=== PATIENT | female | born 1970 | race Caucasian/White ===

== ENCOUNTER 2019-10-16 10:46 | Outpatient (CLI) | payer BC ==
--- NOTE | 2019-10-17 11:10 | CT Report ---
Reason: PAROTIDITIS Procedure Date: 10/16/2019 Accession Number: [id number] / [id number] Procedure: CT - MAXILLOFACIAL WO CPT Code: Final Report FULL RESULT: EXAM: CT MAXILLOFACIAL WITHOUT CONTRAST EXAM DATE: 10/16/2019 11:08 AM. CLINICAL HISTORY: Right parotid fullness and pain. COMPARISONS: None. TECHNIQUE: Thin-section axial images were acquired of the face without contrast. Post-processing: Coronal and sagittal reformats. Other: None. In accordance with CT protocol optimization, one or more of the following dose reduction techniques were utilized for this exam: automated exposure control, adjustment of mA and/or KV based on patient size, or use of iterative reconstructive technique. FINDINGS: Soft Tissue: The infratemporal fossa and parapharyngeal spaces are unremarkable. Orbits: Symmetric and unremarkable. Bones: No fracture or bone lesion. Temporomandibular Joints: The temporomandibular joints are symmetric and normally located. Sinuses: Trace (2 mm) mucosal thickening along the medial wall of the left maxillary sinus. The other visualized paranasal sinuses are clear. No fluid levels. The ostiomeatal complexes are patent. Other: The parotid glands are symmetric. No evidence for inflammation. No mass lesions. No regional adenopathy. IMPRESSION: Symmetric parotid glands. No evidence for inflammation. No mass lesions. RADIA
== END 2019-10-16 10:47 | disposition home or self-care (01) ==
LOC: DI 10:46
PROVIDERS: ATTEND Physician Assistant
DX: K11.20 Sialoadenitis, unspecified (principal)
CPT/HCPCS: 70486

== ENCOUNTER 2020-01-22 10:39 | Outpatient (CLI) | payer BC ==
--- NOTE | 2020-01-22 17:13 | SLEEP CARE CONSULTATION ---
Information from patient questionnaire entered by Radha Chery. I have reviewed and concur with the information entered by Radha Chery. This document represents the service I personally performed and the decisions made by me, Sarabjit Cuevas MD, [facility]. History of Present Illness Reason for Visit: New patient Chief Complaint: reports: Unrefreshed sleep, Snoring, Excessive daytime sleepiness, Observed pauses in breathing, Fatigue Duration of Symptoms: 15-20 years Usual bedtime: 10:30pm Time it takes to fall asleep: 10 minutes Snores at night: Yes Observed to quit breathing while asleep: Yes Sleeps alone due to snoring: No Number of times waking at night: 2-3 Reasons for waking at night: reports: Choking, Snoring, Pain, Other (noise) Toss, Turn, or Twitch while sleeping: Yes Recalls having dreams: Yes Usually gets out of bed at: 7:30am Feels refreshed in the morning: No Morning headache: No Sleepy or fatigued during the day: Yes Ever fallen asleep while driving: No Takes day naps: Yes Dreams during day naps: No Prior sleep studies: No Additional HPI information: I had the pleasure of seeing Ms. Nuñez today regarding the possibility of her having a sleep disorder. As you know, she is a 49 year old lady who complains of persistent fatigue and loud snore. She did not use to snore when she was at 155 lbs. The patient tells me that she normally goes to bed around 10:30 pm, and it takes her approximately 10 minutes to fall asleep. She has been told that she snores loudly and irregularly at night. She has also been observed to stop breathing in her sleep. Her spouse can sleep in the same bed. She can recall waking up on the average of 2 - 3 times during the night. Most of the time she wakes up because of pain. She has awakened occasionally because of her own snoring, choking, and having to gasp for air. There is a lot of tossing and turning in her sleep. No somniloquy (sleep talking) or somnambulism (sleep walking). Generally she can recall having dreams. In the morning she usually gets up out of the bed around 7:30 a.m. not feeling refreshed nor rested. She usually does not have a morning headache. During the day she complains of feeling sleepy and fatigued. Her score on [place] Sleepiness Scale is 7 out of 24. She has never fallen asleep while driving nor has had any accident due to sleepiness. She usually takes naps during the day. Upon falling asleep during the day she denies having vivid dreams. She has had sleep paralysis. She reports having impaired concentration during the day. No symptoms of restless leg syndrome. 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 Patient is and lives in [place]. Have you smoked in the past 12 months: No Alcohol use: No Caffeine use: Yes Caffeine amount and frequency: 1 cup of coffee a day Family History Family history of sleep disordered breathing: Yes Allergies and Home Medications Drug allergies reviewed: Yes (NKDA) Home medication list reviewed: Yes (none) Review of Systems Weight gain over past 5 years: 7-8 Cardiovascular: reports: palpitations, chest pain Respiratory: reports: shortness of breath, sputum production, chronic cough Gastrointestinal: denies: heartburn, difficulty swallowing, nausea, vomitting, diarrhea, abdominal pain, other Urinary: denies: incontinence, frequency, urgency, impotence, other Neurological: denies: headaches, seizure, head trauma, disorientation, speech dysfunction, gait or balance problems, fainting or unconsciousness, other Psychiatric: reports: depression Ear/Nose/Throat: reports: nasal congestion, sinus problems, wisdom teeth removed Endocrine: reports: sluggishness, increased appetite, unexplained weakness Musculoskeletal: reports: joint pain Immunologic: denies: sneezing, rash, itching, allergies to food or environment, other Physical Exam Height: 5 ft 5 in Weight: 180 lb Body Mass Index: 29.9 BMI Classification: Overweight Impression and Plan IMPRESSION: 1. Obstructive Sleep Apnea-Hypopnea Syndrome, as suggested by history of loud and irregular snoring, observed cessation of breath while asleep, frequent awakenings during the night, unrefreshed sleep, cognitive impairment, and daytime hypersomnolence. Narrow oropharynx and obesity are common predisposing factors for obstructive sleep apnea-hypopnea syndrome. Pathophysiology of sleep-disordered breathing was discussed. I recommend proceeding to polysomnography to confirm the diagnosis and to assess severity. If she has significant sleep disordered breathing, a manual CPAP titration study will also be performed to find the optimal treatment pressure. I informed the patient of what the sleep studies involve and after some discussion, she agreed to proceed. Plan: 1. Schedule an in-laboratory polysomnography or a home sleep apnea test (HSAT). 2. Avoid long distance driving or when feeling sleepy. 3. Avoid alcohol, sedative and muscle relaxant around bedtime. 4. Attempt to lose weight. 5. Return in 1 to 2 weeks after the study to discuss results and initiate therapy. I spent 100% of this visit face to face with the patient with greater than 50% of this was spent time counseling the patient and coordination of care.
== END 2020-01-22 10:40 | disposition home or self-care (01) ==
LOC: SC 10:39
PROVIDERS: ATTEND Internal Medicine Pulmonary Disease
DX: G47.10 Hypersomnia, unspecified (principal); G47.8 Other sleep disorders; R06.83 Snoring; R41.89 Other symptoms and signs involving cognitive functions and awareness; E66.3 Overweight; Z68.29 Body mass index [BMI] 29.0-29.9, adult
CPT/HCPCS: 99203; 99212

== ENCOUNTER 2020-04-17 13:10 | Outpatient (CLI) | payer BC | END 2020-04-17 13:11 | disposition home or self-care (01) | LOC: LAB 13:10 | PROVIDERS: ATTEND Surgery | DX: Z01.818 Encounter for other preprocedural examination (principal); C50.912 Malignant neoplasm of unspecified site of left female breast; Z20.828 Contact with and (suspected) exposure to other viral communicable diseases | CPT/HCPCS: 81599 ==

== ENCOUNTER 2020-04-21 10:02 | Day surgery (SDC) | payer BC ==
[~2020-04-21 10:02] MED LIST: BUFFERED LIDOCAINE 10 ML SYRINGE ONE
[2020-04-21] MEDS ORDERED: fentaNYL 100 MCG/2 ML VIAL IVP ONE (10:03)
[2020-04-21] MEDS ORDERED: DEXAMETHASONE 4 MG/ML VIAL IVP ONE (10:03)
[2020-04-21] MEDS ORDERED: ONDANSETRON 4 MG/2 ML VIAL IVP ONE (10:03)
[2020-04-21] MEDS ORDERED: MIDAZOLAM 2 MG/2 ML VIAL IVP ONE (10:03)
[2020-04-21] MEDS ORDERED: KETAMINE 500 MG/10 ML VIAL IVP ONE (10:03)
[2020-04-21] MEDS ORDERED: PROPOFOL 200 MG/20 ML VIAL IVP ONE (10:03)
[2020-04-21] MEDS ORDERED: LACTATED RINGERS 1,000 ML IV ONE (10:14)
[2020-04-21] MEDS ORDERED: CEFAZOLIN SODIUM IN 0.9 % NACL 2 GM/100 ML BAG IV ONE (10:29)
--- NOTE | 2020-04-21 10:59 | ANESTHESIA ---
Pre-Anesthesia VS, & Labs - Diagnosis Breast CA - Procedure Left breast lumpectomy needle localization Vital Signs: Temp Pulse Resp BP Pulse Ox 36.8 C 75 12 128/78 100 04/21/20 10:14 04/21/20 10:14 04/21/20 10:14 04/21/20 10:14 04/21/20 10:14 Height 5 ft 5 in Weight (kg) 81.5 kg Body Mass Index 29.1 - Is Patient ?: No - Lab Results Lab results reviewed: Yes Home Medications and Allergies Home Medications: Ambulatory Orders Aspirin [Aspirin EC] 81 mg PO DAILY 04/16/20 Tamoxifen Citrate 20 mg PO DAILY 04/16/20 Aspirin [Aspirin EC] 81 mg PO DAILY 04/16/20 Tamoxifen Citrate 20 mg PO DAILY 04/16/20 Allergies/Adverse Reactions: Allergies Allergy/AdvReac Type Severity Reaction Status Date / Time No Known Drug Allergies Allergy Verified 04/16/20 10:23 Anes History & Medical History - Anesthetic History Anesthesia Complications: reports: No previous complications Family history of Anesthesia Complications: Denies Family history of Malignant Hyperthermia: Denies - Medical History Cardiovascular: reports: None, Other Pulmonary: reports: None, Sleep apnea Gastrointestinal: reports: None Urinary: reports: None Neuro: reports: None Musculoskeletal: reports: Fibromyalgia Endocrine/Autoimmune: reports: None Blood Disorders: reports: None Skin: reports: None Smoking Status: Never smoker Psychosocial: reports: No issues indicated - Surgical History General: Appendectomy Gynecologic: Hysterectomy, Oophrectomy Results - EKG Results EKG Comparison: No prior EKG Exam General: Alert, Oriented x3, Cooperative Dental: WNL Mouth Openin Fingerbreadth Neck Mobility: Normal Mallampati classification: II Thyromental Distance: 4-6 cm Respiratory: Lungs clear Cardiovascular: Regular rate Abdomen: Normal bowel sounds Extremities: No clubbing Neurological: Normal gait Mental/Cognitive Status: Alert/Oriented X3 Cognitive Status: Within normal limits Plan Anesthesia Type: General Consent for Procedure(s) Verified and Reviewed: Yes Code Status: Attempt Resuscitation ASA classification: 2-Mild systemic disease Is this case an emergency?: No
[2020-04-21] MEDS ORDERED: BUFFERED LIDOCAINE 10 ML SYRINGE ONE (12:29)
[2020-04-21] MEDS ORDERED: LIDOCAINE 1%-EPI 1:100000 30 ML MDV SUBQ ONE ×4 (13:44→15:19)
[2020-04-21] MEDS ORDERED: BUPIVACAINE 0.5%-EPI 1:200000 PF 30 ML VIAL SUBQ ONE ×4 (13:44→15:19)
[2020-04-21] MEDS ORDERED: LIDOCAINE 1%-EPI 1:100000 20 ML MDV ONE (14:11)
[2020-04-21] MEDS ORDERED: METHYLENE BLUE 0.5% 50 MG/10 ML AMPULE ONE (14:11)
[2020-04-21] MEDS ORDERED: BUPIVACAINE 0.5% PF 30 ML VIAL ONE (14:12)
[2020-04-21] MEDS ORDERED: SODIUM CHLORIDE 0.9% 10 ML ONE (14:16)
[2020-04-21] MEDS ORDERED: METHYLENE BLUE 0.5% 50 MG/10 ML AMPULE IVP ONE ×2 (14:36)
[2020-04-21] MEDS ORDERED: ACETAMINOPHEN 1,000 MG/100 ML 100 ML IV ONE (14:38)
--- NOTE | 2020-04-21 15:51 | OPERATIVE REPORT ---
Operative Report - General Planned Procedure: Left breast lumpectomy and sentinel node biopsy after needle localization and mapping Pre-Op Diagnosis: Biopsy proven left breast cancer Procedure Performed: Left breast lumpectomy and sentinel node biopsy after needle localization and mapping Post Op Diagnosis: Left breast cancer - Procedure Note Primary Surgeon: Keshia Anesthesia Provider: Deb Anesthesia Technique: Local, MAC Pathology: 1. a single blue and radioactive lymph node to pathology in formalin 2. Left breast mass marked for orientation Estimated Blood Loss (mL): 25 Findings: 1. a single left sentinel with 10 second count of 1890, 1 sec count of 185 in a background of 8. Room background was 0 2. Mass and clip centered in the specimen Complications: None apparent - Other Other Information/Narrative: After obtaining informed consent, the patient is brought to the operating room and placed in the supine position on the operating table. Following successful induction of sedation, the left breast and axilla were prepped and draped in the standard surgical fashion. A timeout was held per scope protocol. All elements of the surgical safety checklist were followed before, during, and after the procedure. The patient was seen previously in our radiology department where she underwent a needle localization as well as injection of 1 mCi of technetium sulfur colloid followed by sentinel node mapping. TheTo the axilla at all. Images were reviewed and did not show any significant evidence of sentinel node. radioactive tracer did not appear to migrate we elected to attempt a second mapping using methylene blue in the operating room.We began the procedure by double checking using the neoprobe. The entire chest wall cervical supraclavicular axillary and internal mammary regions were scanned with the neoprobe without significant counts. This is with the exception of a very high count at the nipple areolar complex where the patient was injected.I injected 3 mL of methylene blue in the subcutaneous region of the nipple areolar complex and the massaged the area for 5 minutes. We began the procedure by infiltrating a mixture of local anesthetics in a natural axillary fold in the left axilla. An incision was created here and carried down through the skin and subcutaneous tissue.The axillary fat pad was opened. We again used the neoprobe to try to identify an area of increased uptake. A single hot node was identified at level 2. This same node was noted to be dark blue in color. All afferent and efferent vasculature and lymphatics were addressed with hemoclips. The node was liberated from surrounding structures and passed from the table as sentinel node 1.Additional survey of the axilla did not reveal any additional blue lymphatics or lymph nodes. We co ntinued with the lumpectomy. Due to the proximity of the breast mass to the axilla, I was able to utilize the same incision to perform the lumpectomy. The end of the wire was pulled through the skin and into the axillary incision. It led down to the mass in the left breast this mass was gently grasped with an Allis forcep and removed sharply from the surrounding tissue. It was taken directly off of the pectoralis muscle posteriorly without taking muscle. Anteriorly there is approximately 1/2 cm of subcutaneous tissue over the lesion. The entire specimen was liberated in a 360 degree fashion and delivered onto the field. It was marked for orientation and submitted for specimen x-ray. The wound was checked for hemostasis and irrigated with warm water. It was aspirated free of all fluid and packed once again. We waited for radiology to read the specimen. They called back into the room stating the target lesion and clip were contained and within the specimen.The wound was checked once again for hemostasis and then closed in 2 layers with Vicryl and Monocryl suture. Dermabond was applied to the skin. All sponge, needle, and instrument counts were correct at the conclusion of the case. The patient was allowed to wake from anesthesia without difficulty and taken to the postanesthesia care unit in good condition.
[2020-04-21] MEDS ORDERED: IBUPROFEN 600 MG TABLET PO PRN (15:55)
[2020-04-21] MEDS ORDERED: ONDANSETRON 4 MG/2 ML VIAL IVP PRN (15:55)
[2020-04-21] MEDS ORDERED: ACETAMINOPHEN 325 MG TABLET PO PRN (15:55)
[2020-04-21] MEDS ORDERED: oxyCODONE 5 MG TABLET PO PRN (15:55)
[2020-04-21] MEDS: HYDROmorphone 1 MG/ML CARPUJECT ONE ×2 (16:00→16:06)
[2020-04-21] MEDS ORDERED: BUFFERED LIDOCAINE 10 ML SYRINGE IU ONE (16:15)
[2020-04-21] MEDS ORDERED: HYDROmorphone 0.5 MG/0.5 ML SYRINGE ONE (16:41)
[2020-04-21] MEDS ORDERED: IBUPROFEN 600 MG TABLET PO ONE (17:05)
[2020-04-21] MEDS ORDERED: oxyCODONE 5 MG TABLET ONE (17:05)
[2020-04-21 17:24] VITALS: BP 125/78
--- NOTE | 2020-04-22 16:30 | Nuclear Medicine Report ---
Reason: LEFT INVASIVE DUCTAL CA Procedure Date: 04/21/2020 Accession Number: [id number] / [id number] Procedure: NM - Lymph Node Scintigraphy CPT Code: Final Report FULL RESULT: PROCEDURE: SENTINEL LYMPH NODE IMAGING RADIOPHARMACEUTICAL: 0.5-1.0 mCi Millipore filtered Tc-99m sulfur colloid. INDICATIONS: LEFT INVASIVE DUCTAL CA TECHNIQUE: The area around the nipple was prepped and draped in a sterile fashion. Tc-99m sulfur colloid was injected intra-dermally in the outer edge of the areola in the left breast. Images were obtained subsequently. A body contour outline was obtained. FINDINGS: There is/are no lymph node(s) in the ipsilateral axilla. IMPRESSION: No lymph node(s) are identified in the ipsilateral axilla. Reviewed by: Shruthi Brown MD on 04/22/2020 4:28 PM PDT Approved by: Shruthi Brown MD on 04/22/2020 4:28 PM PDT Station ID: [id number]
--- NOTE | 2020-04-24 09:25 | Mammography Report ---
MAMMOGRAPHY GUIDED WIRE LOCALIZATION LEFT BREAST WITH POST MAMMOGRAPHIC IMAGIN04/21/2020 CLINICAL: Left breast wire localization. No prior exams were available for correlation. A wire localization using mammography guidance was performed for the indistinct irregular shaped mass located in the left breast at 1 o'clock posterior depth. This was described on the previous mammogr aphy and ultrasound reports. The skin was prepped in the usual manner. Local anesthetic was adminis tered to the access site. A skin luis f was made in the breast. The localization was approached from the craniocaudal aspect. A J-hook wire was inserted adjacent to the marker under mammography guidanc e. The patient received additional topical anesthetic during the procedure. A sterile dressing was applied to the access site. Post placement mammographic imaging was obtained. IMPRESSION: WIRE LOCALIZATION Wire localization for the mass in the left breast at 1 o'clock posterior depth was successful. This exam was interpreted at Station ID: [id number]. Shruthi Brown M.D. [facility]/lobo:04/23/2020 16:41:20 copy to: Rob Duggan copy to: ANDI SCOTT BI-RADS CATEGORY: () - Unspecified - other recall n/a LATERALITY: (B)
--- NOTE | 2020-04-24 09:25 | Mammography Report ---
SPECIMEN LEFT BREAST: 04/21/2020 CLINICAL: Left breast specimen. Patient returns today to evaluate an architectural distortion in the right breast. No prior exams were available for correlation. A surgical specimen was imaged for the indistinct irregular shaped mass located in the left breast a t 1 o'clock posterior depth. This was described on the previous mammography report. IMPRESSION: SPECIMEN The imaged specimen includes the lesion, a biopsy clip, and the distal portion of the localization wi re. This exam was interpreted at Station ID: [id number]. Shruthi chow/lobo:04/23/2020 16:42:02 copy to: Rob Duggan copy to: ANDI SCOTT BI-RADS CATEGORY: () - Unspecified - other recall n/a LATERALITY: (B)
== END 2020-04-21 10:03 | disposition home or self-care (01) ==
LOC: SDS 10:02
PROVIDERS: ATTEND Surgery
PROC: 07B60ZX Excision of Left Axillary Lymphatic, Open Approach, Diagnostic (ICD-10-PCS; 2020-04-21)
PROC: 0HBU0ZZ Excision of Left Breast, Open Approach (ICD-10-PCS; principal; 2020-04-21 12:00)
DX: C50.412 Malignant neoplasm of upper-outer quadrant of left female breast (principal); Z17.0 Estrogen receptor positive status [ER+]; G47.30 Sleep apnea, unspecified
CPT/HCPCS: 19281; 19301; 38525; 38900; 76098; 78195; A9270; J0131; J0690; J1170; J7120

== ENCOUNTER 2020-06-05 12:52 | Outpatient (CLI) | payer BC | END 2020-06-05 12:53 | disposition home or self-care (01) | LOC: LAB 12:52 | PROVIDERS: ATTEND Surgery | DX: Z01.818 Encounter for other preprocedural examination (principal); C50.912 Malignant neoplasm of unspecified site of left female breast; Z20.828 Contact with and (suspected) exposure to other viral communicable diseases ==

== ENCOUNTER 2020-06-09 06:33 | Day surgery (SDC) | payer BC ==
[2020-06-09] MEDS ORDERED: fentaNYL 100 MCG/2 ML VIAL IVP ONE (06:34)
[2020-06-09] MEDS ORDERED: PROPOFOL 200 MG/20 ML VIAL IVP ONE (06:34)
[2020-06-09] MEDS ORDERED: LIDOCAINE-MPF 2% 5 ML VIAL IM ONE (06:34)
[2020-06-09] MEDS ORDERED: GLYCOPYRROLATE 1 MG/5 ML VIAL IVP ONE (06:34)
[2020-06-09] MEDS ORDERED: MIDAZOLAM 2 MG/2 ML VIAL IVP ONE (06:34)
[2020-06-09] MEDS ORDERED: SODIUM CHLORIDE 0.9% 0 ML ONE (06:59)
[2020-06-09] MEDS ORDERED: LACTATED RINGERS 1,000 ML IV ONE (07:05)
--- NOTE | 2020-06-09 07:14 | ANESTHESIA ---
Pre-Anesthesia VS, & Labs - Diagnosis left breast ductal carcinoma - Procedure portacath placement Vital Signs: Temp Pulse Resp BP Pulse Ox 36.8 C 81 18 144/81 H 98 06/09/20 06:35 06/09/20 06:35 06/09/20 06:35 06/09/20 06:35 06/09/20 06:35 Height 5 ft 5 in Weight (kg) 83.4 kg Body Mass Index 29.1 - NPO >8 hours - Is Patient ?: No - Lab Results Lab results reviewed: Yes Home Medications and Allergies No Known Home Medications 06/04/20 Allergies/Adverse Reactions: Allergies Allergy/AdvReac Type Severity Reaction Status Date / Time No Known Drug Allergies Allergy Verified 04/16/20 10:23 Anes History & Medical History - Anesthetic History Anesthesia Complications: reports: No previous complications Family history of Anesthesia Complications: Denies Family history of Malignant Hyperthermia: Denies - Medical History Cardiovascular: reports: None, Other Pulmonary: reports: None, Sleep apnea Gastrointestinal: reports: Other Urinary: reports: None Neuro: reports: None Musculoskeletal: reports: Fibromyalgia Endocrine/Autoimmune: reports: None Blood Disorders: reports: None Skin: reports: None Smoking Status: Never smoker - Surgical History General: Appendectomy Gynecologic: Hysterectomy, Oophrectomy, Other Exam General: Alert, Oriented x3, Cooperative Dental: WNL Mouth Openin Fingerbreadth Neck Mobility: Normal Mallampati classification: II Respiratory: Lungs clear Cardiovascular: Regular rate, Normal S1, Normal S2, No murmurs Plan Anesthesia Type: General Consent for Procedure(s) Verified and Reviewed: Yes Code Status: Attempt Resuscitation ASA classification: 2-Mild systemic disease Is this case an emergency?: No
[2020-06-09] MEDS ORDERED: BUPIVACAINE 0.5% PF 30 ML VIAL INFIL ONE ×3 (07:19→08:34)
[2020-06-09] MEDS ORDERED: LIDOCAINE 1%-EPI 1:100000 30 ML MDV SUBQ ONE ×3 (07:20→08:34)
[2020-06-09] MEDS ORDERED: BUPIVACAINE 0.5% PF 30 ML VIAL ONE (07:24)
[2020-06-09] MEDS ORDERED: LIDOCAINE 1%-EPI 1:100000 20 ML MDV ONE (07:24)
[2020-06-09] MEDS ORDERED: ceFAZolin 1 GM VIAL ONE (07:37)
--- NOTE | 2020-06-09 08:51 | OPERATIVE REPORT ---
Operative Report - General Procedure Date: 06/09/20 Planned Procedure: Right subclavian power port Pre-Op Diagnosis: Left breast cancer Procedure Performed: Right subclavian PowerPort placement Post Op Diagnosis: Invasive left breast cancer - Procedure Note Primary Surgeon: Keshia Anesthesia Provider: MAICO Carmona Anesthesia Technique: Local, MAC Estimated Blood Loss (mL): 5 Findings: Port in good position in the superior vena cava Complications: None apparent - Other Other Information/Narrative: After obtaining informed consent, the patient is brought to the operating room and placed in supine position on the operating table. Following successful induction of sedation with monitored anesthesia care and appropriate padding of all bony prominences, the left chest and neck were prepped and draped in the standard surgical fashion. A timeout was held per scope protocol. All elements of the surgical safety checklist were followed before, during, and after the procedure. Following infiltration with local anesthetic to create a field block, the right subclavian vein was accessed in the deltopectoral groove. The J-wire was gently placed into the vein. Fluoroscopy was used to confirm the position of the wire and in the subclavian vein. We anesthetized the existing healed scar in the area around it for placement of the port itself. An incision was created here and carried down through the skin and subcutaneous tissue. A pocket was created with blunt dissection. The port tubing was attached to the tunneling device and passed from the access site of the vein into the pocket. It was trimmed to an appropriate length and the port attached. The port was sewn into place in the pocket. The dilator and introducer were then passed over the J-wire that was in the subclavian vein. The J-wire and dilator were removed leaving only the introducer. The tubing was then passed through the introducer and the introducer cracked and removed per swimming pool plasterer helper's directions. The port was then checked for function and flushed and martin easily. Additional local anesthetic was applied to the chest wall. The port pocket was closed with interrupted Vicryl sutures and Monocryl stitches were placed in both skin incision sites. All sponge, needle, and instrument counts were correct at the conclusion of the case. Chest x-ray in the postanesthesia care unit revealed the port in good position in the superior vena cava without evidence of pneumothorax.
--- NOTE | 2020-06-09 09:37 | XRAY Report ---
PROCEDURE: Post Port Placement 1V CXR INDICATIONS: Right port placement TECHNIQUE: One view of the chest was acquired. COMPARISON: Intraoperative study from the same day FINDINGS: Surgical changes and devices: Right chest wall Port-A-Cath tip is in the SVC.. Lungs and pleura: No pleural effusions or pneumothorax. Lungs are clear. Mediastinum: Mediastinal contours appear normal. Heart size is normal. Bones and chest wall: No suspicious bony lesions. Overlying soft tissues appear unremarkable. IMPRESSION: Right chest wall Port-A-Cath tip is in SVC. No acute cardiopulmonary pathology. Reviewed by: Raul Gorman MD on 06/09/2020 9:35 AM PDT Approved by: Raul Gorman MD on 06/09/2020 9:35 AM PDT Station ID: [id number]
[2020-06-09 09:52] VITALS: BP 116/66
--- NOTE | 2020-06-11 09:04 | XRAY Report ---
Reason: PORT A CATH PLACEMENT Procedure Date: 06/09/2020 Accession Number: [id number] / [id number] Procedure: FL - OR C-Arm Procedure CPT Code: Final Report FULL RESULT: PROCEDURE: OR C-Arm Procedure INDICATIONS: PORT A CATH PLACEMENT TECHNIQUE: Fluoroscopic assistance was provided to the surgical staff and performance of a Port-A-Cath placement, with tip in normal position from right-sided approach documented on the intraprocedural single image from the operation. COMPARISON: Postprocedural chest plain film. FINDINGS: Normal Port-A-Cath tip positioning, further documented by postprocedural chest plain film. Right-sided approach. IMPRESSION: Successful Port-A-Cath placement from right-sided approach with tip in normal position. Reviewed by: Edmond Zaragoza MD on 06/11/2020 9:03 AM PDT Approved by: Edmond Zaragoza MD on 06/11/2020 9:03 AM PDT Station ID: [id number]
== END 2020-06-09 06:34 | disposition home or self-care (01) ==
LOC: SDS 06:33
PROVIDERS: ATTEND Surgery
PROC: 02HV33Z Insertion of Infusion Device into Superior Vena Cava, Percutaneous Approach (ICD-10-PCS; 2020-06-09)
PROC: 0JH60WZ Insertion of Totally Implantable Vascular Access Device into Chest Subcutaneous Tissue and Fascia, Open Approach (ICD-10-PCS; principal; 2020-06-09 07:30)
DX: C50.912 Malignant neoplasm of unspecified site of left female breast (principal); Z80.3 Family history of malignant neoplasm of breast
CPT/HCPCS: 36561; 71045; C1788; J7120

== ENCOUNTER 2020-07-30 08:00 | Outpatient (CLI) | payer BC ==
[2020-07-30 16:02] LABS: FOLLICLE STIMULATING HORMONE 7.45 mIU/mL
[2020-07-30 16:03] LABS: LUTEINIZING HORMONE 3.73 mIU/mL
== END 2020-07-30 23:59 | disposition home or self-care (01) ==
LOC: LAB.R 08:00
PROVIDERS: ATTEND Internal Medicine
DX: C50.919 Malignant neoplasm of unspecified site of unspecified female breast (principal)
CPT/HCPCS: 82670; 83001; 83002

== ENCOUNTER 2020-08-06 12:23 | Outpatient (CLI) | payer BC ==
--- NOTE | 2020-08-11 09:24 | Ultrasound Report ---
LIMITED ULTRASOUND OF LEFT BREAST AND AXILLA: 08/06/2020 CLINICAL: Diffuse left breast pain. Comparison is made to exams dated: 04/21/2020 specimen, 04/21/2020 localization - [facility], 02/04/2020 ultrasound, 02/04/2020 ultrasound, 01/30/2020 breast MRI, and 01/17/2020 ultrasound [facility]. Color flow and real-time ultrasound of the left breast axilla were performed. Smith scale images of the real-time examination were reviewed. There is a 0.8 cm x 0.5 cm x 0.8 cm oval cyst in the left breast at 1 o'clock posterior depth 9 cm fr om the nipple. This oval cyst is hypoechoic. This correlates to the reported pain. Color flow imag ing demonstrates that there is no vascularity present. This is noted in close vicinity to surgical s ite. No cyst or abnormality is seen in the 1 o'clock 5cm from the nipple as previously described. There also is a benign 0.7 cm x 0.5 cm x 0.7 cm normal lymph node in the left breast at 3:30 o'clock middle depth 8 cm from the nipple. This normal lymph node is hypoechoic with fatty hilum. This ruy elates to the reported pain and with area of clinical concern. Color flow imaging demonstrates that there is vascularity present in the hilum. No significant abnormalities were seen sonographically in the left axilla. IMPRESSION: PROBABLY BENIGN The 0.8 cm x 0.5 cm x 0.8 cm oval cyst in the left breast at 1 o'clock posterior depth resembles a co mplicated cyst versus post operative fluid collection, and is probably benign. The 0.7 cm x 0.5 cm x 0.7 cm normal lymph node in the left breast at 3:30 o'clock middle depth is con sistent with a lymph node and is benign. A follow-up left mammogram and an ultrasound in 6 months is recommended to demonstrate stability. Findings and recommendations were conveyed to the patient during today's visit. This exam was interpreted at Station ID: [id number]. Electronically Signed By: Joseph Mejía M.D. aty/:08/06/2020 16:40:17 copy to: Rob Duggan copy to: ANDI SCOTT Ultrasound BI-RADS: 3 Probably benign BI-RADS CATEGORY: (3) - 3 Mammo and [place] [id number] 6 month follow-up LATERALITY: (L)
== END 2020-08-06 12:24 | disposition home or self-care (01) ==
LOC: DI 12:23
PROVIDERS: ATTEND Internal Medicine Hematology & Oncology
DX: C50.912 Malignant neoplasm of unspecified site of left female breast (principal); N60.02 Solitary cyst of left breast
CPT/HCPCS: 76642

== ENCOUNTER 2020-08-14 15:23 | Outpatient (CLI) | payer BC ==
[2020-08-14] MEDS ORDERED: IOVERSOL 320 100 ML VIAL IVP ONE ×2 (15:48→17:53)
--- NOTE | 2020-08-14 16:30 | CT Report ---
PROCEDURE: SOFT TISSUE NECK W INDICATIONS: PAROTID GLAND ENLARGEMENT, HX BREAST CA CONTRAST: IV CONTRAST: Optiray 320 ml: 100 PO CONTRAST: *NO PO CONTRAST TECHNIQUE: After the administration of intravenous contrast, 3.0 mm axial sections acquired from the sella to th e aortic arch. Additional oblique axial 3.0 mm sections acquired through the pharynx. 3 mm thick co ria reformats were generated. For radiation dose reduction, the following was used: automated exp osure control, adjustment of mA and/or kV according to patient size. COMPARISON: None. FINDINGS: Image quality: Excellent. Lymph nodes: No enlarged lymph nodes seen throughout the neck. Vessels: Visualized vasculature appears patent. Neck spaces: The oropharynx, nasopharynx, and pharynx demonstrate no mucosal lesions. The vocal cor ds, false vocal cords, pyriform sinuses, epiglottis, vallecula, and tongue base all appear normal. E xtramucosal spaces appear unremarkable. Glands: The area of clinical concern is marked overlying the right parotid gland. The right parotid gland demonstrates no internal masses. The right parotid gland demonstrates normal size and is symmet juana to the contralateral left parotid gland. Both parotid glands appear fatty infiltrated. The submandibular glands appear normal. Along the anterior right aspect of the right thyroid, there is a low-density nodule seen measuring 12 mm, as on series 3 image 98. Miscellaneous: Visualized brain and orbits appear normal. Lung apices appear clear. Superficial so ft tissues appear normal. Bones: No suspicious bony lesions. Visualized sinuses and mastoids appear unremarkable. Age-approp riate degenerative changes are seen. IMPRESSION: Unremarkable parotid glands, without intraluminal masses. The parotid glands appear fatty infiltrated . Incidental note is made of a 12 mm nodule along the anterior inferior aspect of the right thyroid. If clinically appropriate, please consider a dedicated thyroid ultrasound for further evaluation. Reviewed by: Dameon Coats MD on 08/14/2020 3:29 PM MANOJ Approved by: Dameon Coats MD on 08/14/2020 3:29 PM AKAMEE Station ID: [id number]
== END 2020-08-14 15:24 | disposition home or self-care (01) ==
LOC: DI 15:23
PROVIDERS: ATTEND Otolaryngology
DX: E04.1 Nontoxic single thyroid nodule (principal)
CPT/HCPCS: 70491; Q9967

== ENCOUNTER 2020-09-03 10:22 | Outpatient (CLI) | payer BC ==
--- NOTE | 2020-09-03 14:25 | Ultrasound Report ---
PROCEDURE: Head or Neck Soft Tissue INDICATIONS: THYROID NODULE TECHNIQUE: Real time scanning was performed of the neck region of interest, with image documentation . COMPARISON: None. FINDINGS: The right thyroid lobe measures 1.9 x 2.2 x 5.4 cm and the left measures 1.5 x 1.7 x 4.6 cm . The isthmus is 2 mm in thickness. The thyroid margins are lobulated. 3 right-sided and 3 left-sided thyroid nodules are present. On the right at the middle third there is a 3 x 6 x 7 mm predominantly solid hypoechoic irregular nod ule without calcifications yielding a categorization score of 6, TIRADS 4, moderately suspicious, and given its small size follow-up by ultrasound in 1, 2, 3, and 5 years is recommended. Also on the right there is a 3 x 5 x 8 mm nodule at the junction of the middle and upper thirds of th e gland, which is predominantly cystic, anechoic, smoothly marginated with punctate calcifications. T his yields a categorization score of 3, TIRADS 3, which is mildly suspicious and given small size no specific follow-up is recommended. Also on the right there is a 3 x 5 x 7 mm small nodule that is solid, hypoechoic, smoothly marginated with no calcifications yielding a categorization score of 4,, which given small size follow-up by ul trasound would be anticipated in one, 2, 3 and 5 years. On the left there is a 6 x 9 x 11 mm nodule that is solid, markedly hypoechoic, irregular in its melanie ination, and with punctate indications. This is located at the lower third of the gland. This yields a categorization score of 10,TIRADS 5, with recommendation of following 4 a total of 5 years annually given its small size averaging less than 1 cm. Within the middle third of the gland on the left there is a 3 x 5 x 5 mm predominantly cystic nodule that is anechoic, smoothly marginated calcifications. This yields a categorization score of 0,TIRADS !, Considered benign, without need for follow-up. Finally, at the lower third of the gland on the left there is a 4 x 5 x 5 mm nodule that is tolerated than wide, solid, hypoechoic, irregular in its margins and contains macrocalcifications. This yields a categorization score of 10,TIRADS 5, and given its small size averaging less than 5 mm annual sono graphic follow-up is recommended for 5 years. IMPRESSION: Multiple small thyroid nodules are present. No biopsy is recommended given the presence of nodules th at are significantly suspicious a follow-up by ultrasound for these nodules is recommended at yearly intervals, for total of 5 years Reviewed by: Edmond Zaragoza MD on 09/03/2020 2:23 PM PDT Approved by: Edmond Zaragoza MD on 09/03/2020 2:23 PM PDT Station ID: [id number]
== END 2020-09-03 10:23 | disposition home or self-care (01) ==
LOC: DI 10:22
PROVIDERS: ATTEND Otolaryngology
DX: E04.2 Nontoxic multinodular goiter (principal)
CPT/HCPCS: 76536

== ENCOUNTER 2020-12-25 15:43 | Outpatient (CLI) | payer BC ==
--- NOTE | 2020-12-26 15:22 | Ultrasound Report ---
PROCEDURE: Head or Neck Soft Tissue INDICATIONS: ABNORMAL THYROID US TECHNIQUE: Real-time scanning was performed of the thyroid gland, with image documentation. COMPARISON: None FINDINGS: Right: Thyroid lobe measures 4.6 x 1.9 x 2.2 cm, and is homogeneous in echotexture. Left: Thyroid lobe measures 4.6 x 1.4 x 1.9 cm, and is homogenous in echotexture. Isthmus: 0.2 cm in thickness. Nodule number: One Location: Right mid pole Size: 0.8 x 0.4 x 0.5 cm. Previously measuring 0.7 x 0.3 x 0.6 cm. Composition: Predominant solid Echogenicity: Mixed isoechoic and hypoechoic. Shape: Wider than tall. Margins: Smooth Echogenic foci: None. Total points: 2 ACR TI-RADS category: 2. Nodule number: Two Location: Right inferior pole. Size: 0.8 x 0.4 x 0.5 cm. Previously measuring 0.8 x 0.2 x 0.5 cm. Composition: Solid Echogenicity: Hypoechoic Shape: wider than tall. Margins: Smooth Echogenic foci: None Total points: 4 ACR TI-RADS category: 4 Nodule number: Three Location: Right inferior pole. Size: 0.8 x 0.4 x 0.6 cm. Previously 0.7 x 0.2 x 0.5 cm. Composition: Solid. Echogenicity: Mixed isoechoic and hypoechoic. Shape: wider than tall. Margins: Smooth Echogenic foci: None. Total points: 4 ACR TI-RADS category: 4 Nodule number: Four Location: Left inferior pole. Size: 1.1 x 0.5 x 0.9 cm. Previously 1.1 x 0.6 x 0.9 cm. . Composition: Solid Echogenicity: Hypoechoic Shape: wider than tall. Margins: Smooth. Echogenic foci: There are punctate echogenic foci. Total points: 7 ACR TI-RADS category: 5 Nodule number: Five Location: Left inferior pole. Size: 0.5 x 0.4 x 0.3 cm. Previously 0.5 x 0.3 x 0.5 cm. Composition: Cystic and solid Echogenicity: Mixed isoechoic and hypoechoic Shape: wider than tall. Margins: Smooth. Echogenic foci: None. Total points: 2 ACR TI-RADS category: 2 Nodule number: Six Location: Left inferior pole. Size: 0.4 x 0.3 x 0.4 cm. Previously 0.5 x 0.5 x 0.4 cm. Composition: Solid Echogenicity: Hypoechoic Shape: Not well seen due to shadowing. Margins: Ill-defined. Echogenic foci: Shadowing macrocalcification noted. Total points: 5 ACR TI-RADS category: 4 IMPRESSION: 1. Bilateral thyroid nodules appear stable in size compared to the prior study. These include a left inferior pole TI-RADS 5 nodule measuring up to 1.1 cm. Ultrasound-guided fine-needle aspiration is re commended if clinically indicated. ACR TI-RADS definitions and recommendations: TI-RADS 1 (benign): 0 points. FNA not needed. TI-RADS 2 (not suspicious): 2 points. FNA not needed. TI-RADS 3 (mildly suspicious): 3 points. ? FNA if 2.5 cm or larger, follow up if 1.5 cm or larger (at 1, 3, and 5 years). TI-RADS 4 (moderately suspicious): 4-6 points. ? FNA if 1.5 cm or larger, follow up if 1 cm or larger (at 1, 2, 3, and 5 years). TI-RADS 5 (highly suspicious): 7 points or more. ? FNA if 1 cm or larger, follow up if 0.5 cm or larger (every year for 5 years). Reviewed by: Jay Lemos MD on 12/26/2020 3:20 PM PST Approved by: Jay Lemos MD on 12/26/2020 3:20 PM PST Station ID: [id number]
== END 2020-12-25 15:44 | disposition home or self-care (01) ==
LOC: DI 15:43
PROVIDERS: ATTEND Internal Medicine Hematology & Oncology
DX: C50.412 Malignant neoplasm of upper-outer quadrant of left female breast (principal); E04.1 Nontoxic single thyroid nodule

== ENCOUNTER 2021-01-22 08:57 | Day surgery (SDC) | payer BC ==
[2021-01-22 09:30] LABS: HCG UR QUAL NEGATIVE
[2021-01-22] MEDS ORDERED: LACTATED RINGERS 1,000 ML IV ONE ×2 (09:38→10:39)
[2021-01-22] MEDS ORDERED: MIDAZOLAM 2 MG/2 ML VIAL ONE ×4 (10:23→10:39)
[2021-01-22] MEDS ORDERED: fentaNYL 250 MCG/5 ML VIAL ONE (10:23)
--- NOTE | 2021-01-22 10:44 | OPERATIVE REPORT ---
Operative Report - General Procedure Date: 01/22/21 Planned Procedure: Hemorrhoid Banding Pre-Op Diagnosis: Troublesome internal hemorrhoids Procedure Performed: Hemorrhoid banding following colonoscopy Post Op Diagnosis: Same - Procedure Note Primary Surgeon: Keshia Anesthesia Technique: Local, Moderate sedation Estimated Blood Loss (mL): 1 Findings: Full roopa of enlarged internal hemorrhoids Complications: None apparent - Other Other Information/Narrative: Colonoscopy was completed immediately prior to the banding procedure. Timeout was done at the start of the colonoscopy procedure.The patient remained sedated with monitored anesthesia care at this time. All elements of the surgical safety checklist were followed before, during, and after this procedure. The anoscope with obturator was lubricated and placed in the patient's anal canal. The obturator was removed and the slots aligned to allow access to 3 column internal hemorrhoids. The device, the [employer] multi band ligator-short shot-was placed into the anal canal. The tip of the device was placed in contact with the tissue to be treated beginning at the 4 o'clock position. The suction port was closed. A single band was deployed and the suction port releas ed.The band was noted to be in place.We next addressed the hemorrhoid complex at 7:00.The tip of the device was placed in contact with the tissue, the suction port covered, a band deployed, the suction port released. Again we were able to see that the band was in place.We next addressed the hemorrhoid at the 11 o'clock position. This was the smallest of the 3. The tip of the device was placed in contact with the tissue, the suction port covered, a band deployed, the suction port released. Again we were able to see that the band was in place.Examination of the anal count canal revealed all [address] The anoscope was removed and the procedure concluded. The patient tolerated the procedure well. She was allowed awaken from sedation and taken to the postanesthesia care unit in good condition.
[2021-01-22] MEDS ORDERED: LIDOCAINE JELLY 2% 6 ML JEL.PF.APP ONE (10:47)
[2021-01-22 11:51] VITALS: BP 103/63
== END 2021-01-22 08:58 | disposition home or self-care (01) ==
LOC: SDS 08:57
PROVIDERS: ATTEND Surgery
PROC: 06LY4CC Occlusion of Hemorrhoidal Plexus with Extraluminal Device, Percutaneous Endoscopic Approach (ICD-10-PCS; 2021-01-22)
PROC: 0DBL8ZZ Excision of Transverse Colon, Via Natural or Artificial Opening Endoscopic (ICD-10-PCS; principal; 2021-01-22 10:00)
DX: Z12.11 Encounter for screening for malignant neoplasm of colon (principal); K64.8 Other hemorrhoids; D12.3 Benign neoplasm of transverse colon; K57.30 Diverticulosis of large intestine without perforation or abscess without bleeding; Z85.3 Personal history of malignant neoplasm of breast
CPT/HCPCS: 45380; 46221; 81025; J3010; J7120

== ENCOUNTER 2021-04-20 12:59 | Outpatient (CLI) | payer BC ==
--- NOTE | 2021-04-22 06:54 | Ultrasound Report ---
ULTRASOUND OF LEFT AXILLA: 04/20/2021 CLINICAL: Personal history of left breast cancer. Comparison is made to exams dated: 08/06/2020 ultrasound, 04/21/2020 specimen, 04/21/[address] - [facility], 02/04/2020 ultrasound, 02/04/2020 ultrasound, and 01/30/2020 breast MRI - [facility]. Ultrasound of the left axilla was performed. Smith scale images of the real-time examination were re viewed. No significant abnormalities were seen sonographically in the left axilla. The tissue is difficult t o penetrate with ultrasound and deep abnormalities may not be seen sonographically. IMPRESSION: NEGATIVE There is no sonographic abnormality to explain lymphedema. No enlarged axillary nodes were visible. Continued clinical follow up is recommended. Return to annual mammogram screening schedule is recommended. Findings and recommendations were conveyed to the patient at time of exam. This exam was interpreted at Station ID: [id number]. Electronically Signed By: Chana arguello/:04/20/2021 14:21:52 copy to: Rob Duggan copy to: ANDI SCOTT Ultrasound BI-RADS: 1 Negative BI-RADS CATEGORY: (1) - 1 RECOMMENDATION: (ANNUAL) - Recommend routine annual screening mammography. [id number] return to screening LATERALITY: (B)
== END 2021-04-20 13:00 | disposition home or self-care (01) ==
LOC: DI 12:59
PROVIDERS: ATTEND Radiology Radiation Oncology
DX: C50.412 Malignant neoplasm of upper-outer quadrant of left female breast (principal); Z17.0 Estrogen receptor positive status [ER+]

== ENCOUNTER 2022-09-16 09:46 | Outpatient (CLI) | payer OTHER ==
--- NOTE | 2022-09-17 15:18 | Mammography Report ---
BILATERAL DIGITAL DIAGNOSTIC MAMMOGRAM 3D/2D: 09/16/2022 CLINICAL: Short term follow up of the left breast cancer, due for bilateral imaging. Comparison is made to exams dated: 11/12/2021 breast MRI, 01/30/2020 breast MRI, 01/17/2020 mammogram, 12/28/2019 mammogram - [facility], 11/20/2015 mammogram, and 09/20/2011 mammogram - [facility]. Both breasts are heterogeneously dense, which may obscure small masses (category c / 51-75% glandular tissue). There is a benign radiation changes throughout most of the left breast parenchyma with skin thickenin g also. No other significant masses, calcifications, or other findings are seen in either breast. IMPRESSION: BENIGN There is no mammographic evidence of malignancy. A 1 year screening mammogram is recommended. This exam was interpreted at Station ID: [id number]. NOTE: For mammograms, a report in lay terms will be sent to the patient. Approximately 15% of breast malignancies will not be visualized mammographically. In the management of a palpable breast mass, a negative mammogram must not discourage biopsy of a clinically suspicious lesion. Electronically Signed By: Chapin Roth M.D. jr/:09/16/2022 14:24:00 copy to: Rob Duggan copy to: ANDI CANO BI-RADS Category 2: Benign Finding(s) 3342F PARENCHYMAL PATTERN: (D) - The breast(s) demonstrate(s) heterogeneously dense fibroglandular delia ma. BI-RADS CATEGORY: (2) - 2 RECOMMENDATION: (ANNUAL) - Recommend routine annual screening mammography. [id number] 1 year screening LATERALITY: (B)
== END 2022-09-16 09:47 | disposition home or self-care (01) ==
LOC: DI 09:46
PROVIDERS: ATTEND Internal Medicine Hematology & Oncology
DX: Z08 Encounter for follow-up examination after completed treatment for malignant neoplasm (principal); Z85.3 Personal history of malignant neoplasm of breast

== ENCOUNTER 2022-11-17 17:54 | Outpatient (CLI) | payer OTHER ==
--- NOTE | 2022-11-17 18:36 | CT Report ---
PROCEDURE: HEAD WO INDICATIONS: POST TRAUMATIC MANZO TECHNIQUE: Noncontrast 4.5 mm thick angled axial sections acquired from the foramen magnum to the vertex. For r adiation dose reduction, the following was used: automated exposure control, adjustment of mA and/or kV according to patient size. COMPARISON: Correlation is made with maxillofacial CT, 10/16/2019. FINDINGS: Image quality: There is streak artifact seen through the skull base. CSF spaces: Basal cisterns a re patent. No extra-axial fluid collections. Ventricles are normal in size and shape. Brain: No midline shift. No intracranial masses or hemorrhage. Smith-white matter interface is norm al. Skull and face: Calvarium and visualized facial bones are intact, without suspicious lesions. Sinuses: Visualized sinuses and mastoids are clear. IMPRESSION: No intracranial hemorrhage is seen. No significant intracranial abnormality is seen. Reviewed by: Dameon Coats MD on 11/17/2022 5:35 PM AK Approved by: Dameon Coats MD on 11/17/2022 5:35 PM AK Station ID: [id number]
[2022-11-17 18:48] LABS: BASOPHILS % (AUTO) 0.5 %; EOSINOPHILS # (AUTO) 0.2 10^3/uL (0.0-0.7); HCT - HEMATOCRIT 34.8 % (37.0-47.0); HGB - HEMOGLOBIN 10.5 g/dL (12.0-16.0); LYMPHOCYTES # (AUTO) 2.1 10^3/uL (1.5-3.5); LYMPHOCYTES % (AUTO) 32.9 %; MEAN CORPUSCULAR HEMOGLOBIN 20.5 pg (27.0-31.0); MEAN CORPUSCULAR HGB CONC 30.2 g/dL (32.0-36.0); MEAN CORPUSCULAR VOLUME 67.8 fL (81.0-99.0); MONOCYTES # (AUTO) 0.3 10^3/uL (0.0-1.0); MONOCYTES % (AUTO) 4.8 %; NEUTROPHILS # (AUTO) 3.8 10^3/uL (1.5-6.6); NEUTROPHILS % (AUTO) 58.6 %; PLT - PLATELET COUNT 205 10^3/uL (130-450); RED BLOOD COUNT 5.13 10^6/uL (4.20-5.40); RED CELL DISTRIBUTION WIDTH 16.3 % (12.0-15.0); WHITE BLOOD COUNT 6.4 x10^3/uL (4.8-10.8)
[2022-11-17 19:00] LABS: ALBUMIN 4.1 g/dL (3.2-5.5); ALBUMIN/GLOBULIN RATIO 1.2 (1.0-2.2); BILIRUBIN,TOTAL 0.4 mg/dL (0.2-1.0); CALCIUM 9.1 mg/dL (8.5-10.3); CREATININE 0.6 mg/dL (0.4-1.0); POTASSIUM 3.6 mmol/L (3.5-5.0); TOTAL PROTEIN 7.6 g/dL (6.7-8.2)
[2022-11-17 19:25] LABS: PLATELET ESTIMATE, MANUAL NORMAL (130-450,000) (NORMAL); PLATELET MORPHOLOGY NORMAL APPEARANCE (NORMAL); SLIDE REVIEW? Indicated
== END 2022-11-17 17:55 | disposition home or self-care (01) ==
LOC: DI 17:54
PROVIDERS: ATTEND Physician Assistant
DX: R20.2 Paresthesia of skin (principal); G44.309 Post-traumatic headache, unspecified, not intractable; Z85.3 Personal history of malignant neoplasm of breast
CPT/HCPCS: 36415; 80053; 85025

== ENCOUNTER 2023-07-08 09:26 | Outpatient (CLI) | payer OTHER ==
[2023-07-08 12:48] LABS: ABSOLUTE RETICS # AUTO 0.101 10^6/uL (0.020-0.110); BASOPHILS % (AUTO) 0.4 %; EOSINOPHILS # (AUTO) 0.2 10^3/uL (0.0-0.7); HCT - HEMATOCRIT 38.3 % (37.0-47.0); HGB - HEMOGLOBIN 11.7 g/dL (12.0-16.0); LYMPHOCYTES # (AUTO) 1.6 10^3/uL (1.5-3.5); LYMPHOCYTES % (AUTO) 28.8 %; MEAN CORPUSCULAR HEMOGLOBIN 21.2 pg (27.0-31.0); MEAN CORPUSCULAR HGB CONC 30.5 g/dL (32.0-36.0); MEAN CORPUSCULAR VOLUME 69.3 fL (81.0-99.0); MEAN PLATELET VOLUME 10.9 fL (7.9-10.8); MONOCYTES # (AUTO) 0.3 10^3/uL (0.0-1.0); MONOCYTES % (AUTO) 4.8 %; NEUTROPHILS # (AUTO) 3.5 10^3/uL (1.5-6.6); NEUTROPHILS % (AUTO) 62.6 %; PLT - PLATELET COUNT 227 10^3/uL (130-450); RED BLOOD COUNT 5.53 10^6/uL (4.20-5.40); RETICULOCYTE COUNT % (AUTO) 1.83 % (0.5-2.3); WHITE BLOOD COUNT 5.6 x10^3/uL (4.8-10.8)
[2023-07-08 13:06] LABS: ALBUMIN 4.7 g/dL (3.2-5.5); ALBUMIN/GLOBULIN RATIO 1.6 (1.0-2.2); BILIRUBIN,TOTAL 0.5 mg/dL (0.2-1.0); CALCIUM 10.2 mg/dL (8.5-10.3); CREATININE 0.7 mg/dL (0.6-1.3); TOTAL PROTEIN 7.6 g/dL (6.4-8.9)
[2023-07-08 13:48] LABS: SLIDE REVIEW? Indicated
[2023-07-08 14:45] LABS: PLATELET ESTIMATE, MANUAL NORMAL (130-450,000) (NORMAL); PLATELET MORPHOLOGY NORMAL APPEARANCE (NORMAL); WBC MORPHOLOGY (MULTIPLE) NORMAL APPEARANCE (NORMAL)
== END 2023-07-08 09:27 | disposition home or self-care (01) ==
LOC: LAB.N 09:26
PROVIDERS: ATTEND Internal Medicine Hematology & Oncology
DX: C50.412 Malignant neoplasm of upper-outer quadrant of left female breast (principal); Z17.0 Estrogen receptor positive status [ER+]
CPT/HCPCS: 36415; 80053; 82670; 83001; 85025; 85045

== ENCOUNTER 2023-08-27 13:24 | Outpatient (CLI) | payer OTHER ==
--- NOTE | 2023-08-28 14:48 | Ultrasound Report ---
PROCEDURE: Pelvic w/Transvaginal INDICATIONS: DEEP DYSPAREUNIA TECHNIQUE: Real-time scanning was performed of the pelvic organs, with image documentation. Additional endovagi nal scanning was necessary due to incomplete visualization of the adnexal and endometrial structures by transabdominal scanning. COMPARISON: None. The 'limited pelvic ultrasound' dated December 08, 2022 is imaging of an inguinal p alpable lump. FINDINGS: Uterus: Uterus is surgically absent. The cervical cuff is present with an isoechoic region with calc ified wall measuring 1.2 x 0.8 x 1.1 cm. Ovaries: The left ovary is surgically absent. The right ovary/adnexa is not well seen. Other: No pathologic free abdominal or pelvic fluid. IMPRESSION: 1. Hysterectomy and left oophorectomy. 2. Isoechoic region with calcified wall measuring 1.2 x 0.8 x 1.1 cm in the cervical cuff. Findings a re indeterminate and may represent a calcified fibroid. Consider comparison with prior pelvic ultraso und, if available, or an MRI pelvis with contrast for further characterization. 3. Right ovary/adnexa is not well seen. Reviewed by: Kari Ruby MD on 08/28/2023 2:46 PM PDT Approved by: Kari Ruby MD on 08/28/2023 2:46 PM PDT Station ID: [id number]
== END 2023-08-27 13:25 | disposition home or self-care (01) ==
LOC: DI 13:24
PROVIDERS: ATTEND Obstetrics & Gynecology
DX: N88.8 Other specified noninflammatory disorders of cervix uteri (principal); N94.12 Deep dyspareunia; Z90.710 Acquired absence of both cervix and uterus; Z90.721 Acquired absence of ovaries, unilateral

== ENCOUNTER 2023-09-08 10:29 | Outpatient (CLI) | payer OTHER ==
[2023-09-08] MEDS ORDERED: iohexoL-300 100 ML VIAL IVP ONE (13:18)
--- NOTE | 2023-09-08 13:38 | CT Report ---
PROCEDURE: MAXILLOFACIAL W INDICATIONS: PAROTID GLAND SWELLING CONTRAST: 100ml Omnipaque 300 TECHNIQUE: After the administration of intravenous contrast, 3.0 mm axial sections acquired from the mid-neck to the frontal sinuses, with coronal reformatting. For radiation dose reduction, the following was use d: automated exposure control, adjustment of mA and/or kV according to patient size. COMPARISON: None. FINDINGS: Image quality: Excellent. Soft tissues: No edema, masses, or fluid collections. No soft tissue inflammation. No enlarged lymph nodes. Bilateral parotid gland fatty infiltration and enlargement compatible with benign parotid hyp erplasia. Vascular: Visualized vascular structures appear patent throughout. Bony vascular foramina and canal s appear normal. Bones: Facial bones appear intact, without fractures, erosions, or destruction. Visualized portions of the skull base and auditory canals also appear normal. Sinuses: Paranasal sinuses are aerated without fluid levels, mucosal thickening, or mucoceles. Mast oid air cells are aerated. IMPRESSION: Bilateral benign parotid fatty infiltration/hyperplasia. Reviewed by: Helen Contreras MD, PhD on 09/08/2023 1:36 PM PDT Approved by: Helen Contreras MD, PhD on 09/08/2023 1:36 PM PDT Station ID: [id number]
== END 2023-09-08 10:30 | disposition home or self-care (01) ==
LOC: DI 10:29
PROVIDERS: ATTEND Physician Assistant Medical
DX: K11.8 Other diseases of salivary glands (principal)
CPT/HCPCS: 70487; Q9967

== ENCOUNTER 2023-09-14 10:36 | Outpatient (CLI) | payer OTHER ==
--- NOTE | 2023-09-15 17:03 | Mammography Report ---
BILATERAL DIGITAL DIAGNOSTIC MAMMOGRAM 3D/2D: 09/14/2023 CLINICAL: Left breast follow up for breast cancer. Occasional bilateral breast pain. Comparison is made to exams dated: 09/16/2022 mammogram, 04/21/2020 localization - [facility], 01/17/2020 mammogram, 12/28/2019 mammogram - [facility], and 11/20/2015 mammogram - [facility]. Both breasts are heterogeneously dense, which may obscure small masses (category c / 51-75% glandular tissue). There are stable surgical clips in the left breast in the posterior depth in the upper outer quadrant . Diffuse, post radiation left breast skin thickening is present. No significant masses, calcifications, or other findings are seen in either breast. Mammograms are s table. IMPRESSION: NEGATIVE There is no mammographic evidence of malignancy. Return to annual mammogram screening schedule is rec ommended. Findings and recommendations were conveyed to the patient at time of exam. This exam was interpreted at Station ID: [id number]. NOTE: For mammograms, a report in lay terms will be sent to the patient. Approximately 15% of breast malignancies will not be visualized mammographically. In the management of a palpable breast mass, a negative mammogram must not discourage biopsy of a clinically suspicious lesion. Electronically Signed By: Chana arguello/:09/14/2023 11:45:10 copy to: Rob Duggan copy to: ANDI SCOTT letter sent: No_Letter ACR BI-RADS Category 1: Negative 3341F PARENCHYMAL PATTERN: (D) - The breast(s) demonstrate(s) heterogeneously dense fibroglandular paraline mcdowell. BI-RADS CATEGORY: (1) - 1 RECOMMENDATION: (ANNUAL) - Recommend routine annual screening mammography. [id number] return to screening LATERALITY: (B)
== END 2023-09-14 10:37 | disposition home or self-care (01) ==
LOC: DI 10:36
PROVIDERS: ATTEND Internal Medicine Hematology & Oncology
DX: Z08 Encounter for follow-up examination after completed treatment for malignant neoplasm (principal); Z85.3 Personal history of malignant neoplasm of breast; R92.323 Mammographic fibroglandular density, bilateral breasts

== ENCOUNTER 2023-10-04 08:10 | Outpatient (CLI) | payer OTHER ==
[2023-10-04 12:44] LABS: BUN - BLOOD UREA NITROGEN 18 mg/dL (6-20); CALCIUM 9.4 mg/dL (8.5-10.3); CARBON DIOXIDE - CO2 27 mmol/L (21-32); CHLORIDE 104 mmol/L (101-111); CHOL/HDL RATIO 3.2 (<4.4); CHOLESTEROL 178 mg/dL; CREATININE 0.7 mg/dL (0.6-1.3); GFR - MDRD 88 (>89); GLUCOSE 100 mg/dL (74-104); HDL CHOLESTEROL 56 mg/dL; LDL CHOLESTEROL,CALCULATED 94 mg/dL; LDL/HDL RATIO 1.7 (<4.4); POTASSIUM 4.2 mmol/L (3.5-4.5); SODIUM 138 mmol/L (135-145); TRIGLYCERIDES 138 mg/dL (48-352); VLDL CHOLESTEROL 28 mg/dL
[2023-10-04 12:48] LABS: THYROID STIMULATING HORMONE 2.12 uIU/mL (0.34-5.60)
== END 2023-10-04 08:11 | disposition home or self-care (01) ==
LOC: LAB.N 08:10
PROVIDERS: ATTEND Physician Assistant Medical
DX: Z00.00 Encounter for general adult medical examination without abnormal findings (principal)
CPT/HCPCS: 36415; 80048; 80061; 83721; 84443

== ENCOUNTER 2023-10-05 10:47 | Outpatient (CLI) | payer OTHER ==
--- NOTE | 2023-10-05 11:28 | Sleep Patient Instructions ---
Sleep Center Visit Summary - Patient Visit Information Reason for Visit: Initial consultation - Patient Instructions Instructions Attached: Sleep Study, Sleep Study Home Monitor Additional Instructions: You will be completing a sleep study, either an in-lab polysomnography (PSG) or home sleep study (HST). You will follow-up in the sleep care office after the sleep study is completed to hear the results and talk about therapy, if needed. You will be called by our office staff to schedule this appointment, but you may contact us with any questions. - Clinic Information Contact: [facility] [address] [place] [address] [email or web address] T: [phone]
--- NOTE | 2023-10-05 11:29 | SLEEP CARE CONSULTATION ---
Information from patient questionnaire entered by Frederick Gonzalez. I have reviewed and concur with the information entered by Frederick Gonzalez. This document represents the service I personally performed and the decisions made by me, Rica Bruno ARNP. History of Present Illness Service Date and Time: 10/05/2023 1047 Reason for Visit: New patient Chief Complaint: reports: Unrefreshed sleep, Snoring, Excessive daytime sleepiness, Observed pauses in breathing, Fatigue Date of Onset: 10YRS Usual bedtime: 1030-11PM Time it takes to fall asleep: 10-15MIN Snores at night: Yes Observed to quit breathing while asleep: Yes Sleeps alone due to snoring: No Number of times waking at night: 2-3 Reasons for waking at night: reports: Choking, Other (UNKNOWN) Toss, Turn, or Twitch while sleeping: Yes Recalls having dreams: Yes Usually gets out of bed at: 7AM; weekends -829 Feels refreshed in the morning: No Morning headache: No Sleepy or fatigued during the day: Yes Ever fallen asleep while driving: No Takes day naps: Yes (2-3 times a week for 1 hour or more) Dreams during day naps: No Prior sleep studies: No Additional HPI information: I had the pleasure of seeing JS MORRIS today regarding the possibility of her having a sleep disorder. Her current complaints are unrefreshed sleep, snoring, excessive daytime sleepiness, observed pauses in breathing and fatigue. She says she was set up for a sleep study a few years ago but was diagnosed with breast cancer and needed to take time for that. She continues to have similar symptoms. She snores loudly and her has noted that she will occasionally stop breathing during sleep. She says that she has had times where she will wake up gasping for air and also with heart pounding. She is sure there is something not right and is seeing her PCP next week. - Parasomnia Symptoms Ever been unable to move upon waking from sleep: Yes (can hear every thing going on but can't move; will be trying to wake; 8 x) Walks in sleep: No Talks in sleep: Yes (sometimes) Ever acted out dreams in sleep: No Ever felt weak in the knees when startled or emotional: No Bothered by creepy, crawly, restless sensations in legs: No Problems with memory or concentration: Yes (both) Subjective Initial [place] Sleepiness Scale score: 10 (09/29/23) Past Medical History Past Medical History: reports: Claustrophobia, Arrythmia (heart palpitations), Fibromyalgia, Other (Breast Cancer, had chemotherapy; Hysterectomy) Social History The patient's occupation is a [employer]. Patient is and lives in [place]. Have you smoked in the past 12 months: No Alcohol use: No Caffeine use: Yes Caffeine amount and frequency: 1 CUPS EVERYMORNING Family History Family history of sleep disordered breathing: Yes Family Hx Sleep Apnea: Father: Sleep apnea - Treated Allergies and Home Medications Known drug allergies: No Drug allergies reviewed: Yes Home medication list reviewed: Yes Allergy and home medication list: Allergies No Known Drug Allergies Allergy (Verified 10/04/23 13:50) Home Medications Medication Instructions Recorded Confirmed Last Taken Type Tamoxifen [Nolvadex] 20 mg PO DAILY 11/28/20 10/05/23 01/17/21 History Aspirin [Aspirin EC] 81 mg PO DAILY 01/21/21 10/05/23 01/17/21 History Ascorbic Acid/Collagen Hydr See Rx Instructions .ROUTE .COMPLEX 10/05/23 10/05/23 Unknown History [Collagen Skin Renewal Tab] [place]-3 Fatty Acids [[place]-3] See Rx Instructions .ROUTE .COMPLEX 10/05/23 10/05/23 Unknown History Review of Systems Weight gain over past 5 years: 10-15 Cardiovascular: reports: palpitations, chest pain, irregular heart rate or pulse Respiratory: reports: shortness of breath, sputum production, chronic cough Neurological: reports: headaches, head trauma Psychiatric: reports: claustrophobia Ear/Nose/Throat: reports: nasal congestion, sinus problems, dry mouth/throat, wisdom teeth removed. denies: tonsillectomy Endocrine: reports: sluggishness, too hot or cold Musculoskeletal: reports: joint pain Physical Exam Vital signs obtained and entered by: FREDERICK Oliveira MA Blood Pressure: 124/70 (LEFT ARM) Cuff size: regular Heart Rate: 70 O2 Saturation: 98 Height: 5 ft 4.25 in Weight: 175 lb 3.2 oz Body Mass Index: 29.8 BMI Classification: Overweight Neck circumference: 13.75 Mouth and throat: narrow oropharynx Soft palate: long Hard palate: normal Uvula: long, edematous Uvula visualization: 25% Mallampati Class III Tongue: enlarged in size with teeth quiroz on lateral edges Tonsils: small Heart: regular rate and rhythm Lungs: clear bilaterally Impression and Plan 1. Suspected Obstructive Sleep Apnea-Hypopnea Syndrome, as suggested by a history of loud and irregular snoring, observed cessation of breath while asleep, gasping or choking in sleep, unrefreshed sleep, cognitive impairment, and excessive daytime sleepiness. Narrow oropharynx and obesity are common predisposing factors for obstructive sleep apnea-hypopnea syndrome. I recommend proceeding to polysomnography to confirm the diagnosis and to assess severity. If the patient has significant sleep disordered breathing, a manual CPAP titration study will also be performed to find the optimal treatment pressure. I informed the patient of what the sleep studies involve and after some discussion, obtained agreement to proceed. The pathophysiology of obstructive sleep apnea-hypopnea syndrome was discussed with the patient and health risks of cardiovascular and cerebrovascular disease if not treated. Risks of drowsy driving discussed in detail and patient advised to avoid long distance driving and to seat cover cutter at the first sign of drowsiness. Patient agreed to plan. * Schedule polysomnography. * Avoid long distance driving or driving when feeling sleepy. * Avoid alcohol, sedative and muscle relaxant around bedtime. * Attempt to lose weight. * Review instructions provided by trained office staff on how to prepare for the sleep study. * Return for follow-up after sleep study completed. Counseling Topics: Weight loss health impact Visit Type: In Office Time Spent with Patient (minutes): 31 Provider Statement: I spent 100% of the Face to Face Visit with the patient with greater than 50% spent counseling the patient and coordination of care.
[2023-10-05 11:30] VITALS: BP 124/70; O2SAT 98
== END 2023-10-05 10:48 | disposition home or self-care (01) ==
LOC: SC 10:47
PROVIDERS: ATTEND Nurse Practitioner Family
DX: G47.10 Hypersomnia, unspecified (principal); R06.83 Snoring; R06.81 Apnea, not elsewhere classified; G47.8 Other sleep disorders; R41.89 Other symptoms and signs involving cognitive functions and awareness; E66.3 Overweight; Z68.29 Body mass index [BMI] 29.0-29.9, adult
CPT/HCPCS: 99203; 99212

== ENCOUNTER 2023-11-02 20:44 | Outpatient (CLI) | payer OTHER | END 2023-11-02 20:45 | disposition home or self-care (01) | LOC: SC 20:44 | PROVIDERS: ATTEND Nurse Practitioner Family | DX: G47.33 Obstructive sleep apnea (adult) (pediatric) (principal); E66.3 Overweight; Z68.29 Body mass index [BMI] 29.0-29.9, adult | CPT/HCPCS: 95810 ==

== ENCOUNTER 2023-11-04 10:17 | Emergency (ER) | payer OTHER ==
[2023-11-04 11:01] LABS: BASOPHILS % (AUTO) 0.5 %; EOSINOPHILS # (AUTO) 0.1 10^3/uL (0.0-0.7); HCT - HEMATOCRIT 38.3 % (37.0-47.0); HGB - HEMOGLOBIN 11.6 g/dL (12.0-16.0); LYMPHOCYTES # (AUTO) 1.8 10^3/uL (1.5-3.5); LYMPHOCYTES % (AUTO) 28.5 %; MEAN CORPUSCULAR HEMOGLOBIN 20.6 pg (27.0-31.0); MEAN CORPUSCULAR HGB CONC 30.3 g/dL (32.0-36.0); MEAN CORPUSCULAR VOLUME 68.1 fL (81.0-99.0); MEAN PLATELET VOLUME 10.2 fL (7.9-10.8); MONOCYTES # (AUTO) 0.3 10^3/uL (0.0-1.0); MONOCYTES % (AUTO) 4.6 %; NEUTROPHILS # (AUTO) 3.9 10^3/uL (1.5-6.6); NEUTROPHILS % (AUTO) 64.1 %; PLT - PLATELET COUNT 214 10^3/uL (130-450); RED BLOOD COUNT 5.62 10^6/uL (4.20-5.40); RED CELL DISTRIBUTION WIDTH 15.7 % (12.0-15.0); WHITE BLOOD COUNT 6.1 x10^3/uL (4.8-10.8)
--- NOTE | 2023-11-04 11:04 | XRAY Report ---
PROCEDURE: Chest 1 View X-Ray INDICATIONS: Chest pain TECHNIQUE: One view of the chest was acquired. COMPARISON: 05/01/2018. FINDINGS: Surgical changes and devices: None. Lungs and pleura: No pleural effusions or pneumothorax. Lungs are clear. Mediastinum: Mediastinal contours appear normal. Heart size is normal. Bones and chest wall: No suspicious bony lesions. Overlying soft tissues appear unremarkable. IMPRESSION: No acute cardiopulmonary process. Reviewed by: Kishan Montez MD on 11/04/2023 11:03 AM [facility] Approved by: Kishan Montez MD on 11/04/2023 11:03 AM [facility] Station ID: [id number]
[2023-11-04 11:07] LABS: ALBUMIN 4.7 g/dL (3.2-5.5); ALBUMIN/GLOBULIN RATIO 1.7 (1.0-2.2); BILIRUBIN,TOTAL 0.5 mg/dL (0.2-1.0); CALCIUM 10.1 mg/dL (8.5-10.3); CREATININE 0.7 mg/dL (0.6-1.3); POTASSIUM 3.7 mmol/L (3.5-4.5); TOTAL PROTEIN 7.5 g/dL (6.4-8.9)
[2023-11-04 11:13] LABS: TROPONIN I HIGH SENSITIVITY 2.3 ng/L (2.3-14.8)
--- NOTE | 2023-11-04 12:26 | ED Physician Documentation ---
PD HPI CHEST PAIN - Stated complaint Stated Complaint: CP/LIGHT HEADED - Chief complaint Chief Complaint: Cardiac - History obtained from History obtained from: Patient - Additional information Additional information: 53-year-old female with previous history of breast cancer status postlumpectomy, chemo and radiation presents by private vehicle from home for 2 weeks of intermittent palpitations, pleuritic chest pain, and lightheadedness. Symptoms began 2 weeks ago, she states after bending down to pick something up and then feeling severe lightheadedness and palpitations. She was initially seen at [facility], where she states that workup was performed and she was subsequently discharged home without definitive diagnosis. She states that she recently had a stress test at [facility] that was "abnormal" but she does not know what caused the stress test to be abnormal. Today her chest pain seems to be even worse and so she is coming here for repeat evaluation. Patient reports previous use of tamoxifen Review of Systems Constitutional: denies: Fever, Chills Cardiac: reports: Chest pain / pressure, Palpitations. 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, Oophrectomy, Other - Present Medications Home Medications: Ambulatory Orders Medication Instructions Recorded Confirmed Tamoxifen [Nolvadex] 20 mg PO DAILY 11/28/20 10/05/23 Aspirin [Aspirin EC] 81 mg PO DAILY 01/21/21 10/05/23 Ascorbic Acid/Collagen Hydr See Rx Instructions .ROUTE .COMPLEX 10/05/23 10/05/23 [Collagen Skin Renewal Tab] [place]-3 Fatty Acids [[place]-3] See Rx Instructions .ROUTE .COMPLEX 10/05/23 10/05/23 - Allergies Allergies/Adverse Reactions: Allergies Allergy/AdvReac Type Severity Reaction Status Date / Time No Known Drug Allergies Allergy Verified 10/05/23 11:01 - Social History Does the pt smoke?: No Smoking Status: Never smoker PD ED PE NORMAL - Vitals Vital signs reviewed: Yes - General General: Alert and oriented X 3, No acute distress, Well developed/nourished - HEENT HEENT: Atraumatic, PERRL - Neck Neck: Supple, no meningeal sign - Cardiac Cardiac: RRR, Strong equal pulses - Respiratory Respiratory: No respiratory distress, Clear bilaterally - Abdomen Abdomen: Soft, Non tender, Non distended - Derm Derm: Normal color, Warm and dry, No rash - Extremities Extremities: No deformity, No tenderness to palpate, Normal ROM s pain, No edema - Neuro Neuro: Alert and oriented X 3, 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, No motor deficit, Normal speech - Psych Psych: Normal mood, Normal affect Results - Vitals Vitals: Vital Signs - 24 hr 11/04/23 11/04/23 14:00 16:00 Temperature 37.6 C 36.8 C Heart Rate 88 85 Respiratory 16 14 Rate Blood Pressure 150/86 H 127/87 H O2 Saturation 100 99 Oxygen O2 Source Room air - Labs Labs: Laboratory Tests 11/04/23 11/04/23 10:47 10:47 WBC 6.1 RBC 5.62 H Hgb 11.6 L Hct 38.3 MCV 68.1 L MCH 20.6 L MCHC 30.3 L RDW 15.7 H Plt Count 214 MPV 10.2 Neut # (Auto) 3.9 Lymph # (Auto) 1.8 Calvert # (Auto) 0.3 Eos # (Auto) 0.1 Baso # (Auto) 0.0 Absolute Nucleated RBC 0.00 Nucleated RBC % 0.0 Sodium 139 Potassium 3.7 Chloride 103 Carbon Dioxide 24 Anion Gap 12.0 BUN 14 Creatinine 0.7 Estimated GFR (MDRD) 88 L Glucose 106 H Calcium 10.1 Total Bilirubin 0.5 AST 23 ALT 31 Alkaline Phosphatase 77 Troponin I High Sens 2.3 Total Protein 7.5 Albumin 4.7 Globulin 2.8 Albumin/Globulin Ratio 1.7 Lipase 22 PD Medical Decision Making - ED course Complexity details: reviewed old records, reviewed results, re-evaluated patient, considered differential, d/w patient ED course: Well-appearing patient with 2 weeks of symptoms. Vital signs are currently unremarkable, patient reports that her blood pressure at [facility] was 200 systolic, however it is not elevated here. EKG is normal sinus rhythm without concerning findings. Due to the pleuritic nature of patient's chest pain as well as history of breast cancer will order CT angio. Laboratory work ordered in triage so far is unremarkable with negative troponin and normal chest x-ray. CT angio is negative for any concerning findings. No pulmonary embolism, m etastatic lesions, or any other explanation for patient's recurrent palpitations or pleuritic pain. Patient was counseled of all lab and imaging findings, I recommended ongoing conversation with her primary care physician about getting set up for a Holter monitor. Patient states that she is supposed to follow-up with the [facility] clinic for monitor fitting and will discuss with her PCP. Departure - Departure Disposition: Home, Self Care Clinical Impression: Chest pain, Palpitations Condition: Stable Instructions: ED Chest Pain Atypical Unkn Cause, ED Palpitations Forms: PCP List Discharge Date/Time: 11/04/23 16:00
[2023-11-04] MEDS ORDERED: iohexoL-300 100 ML VIAL IVP ONE (14:30)
--- NOTE | 2023-11-04 15:40 | CT Report ---
PROCEDURE: ANGIO CHEST W/WO INDICATIONS: DYSPNEA, TACHYCARDIA, HX BREAST CA CONTRAST: Omni 300 80ml TECHNIQUE: After the administration of intravenous contrast, 2 mm axial images were acquired from the pulmonary apices to the posterior costophrenic angles during the arterial phase. In addition, 1 mm lung kernel and 5 mm soft tissue kernel reconstructions were performed. 3-dimensional coronal oblique maximum int ensity projection (MIP) reformats, 8 mm axial MIP, and 5 mm coronal and sagittal MPR reformats were t hen performed through the thorax. For radiation dose reduction, the following was used: automated exp osure control, adjustment of mA and/or kV according to patient size. COMPARISON: None. FINDINGS: Image quality: Excellent. Large vessels: No filling defects within the opacified pulmonary arteries, accounting for motion and contrast timing. No evidence of acute aortic syndrome or aortic aneurysm. Lungs and pleura: No consolidation. No pleural effusions. No pneumothorax. No suspicious pulmonary n odules which require follow up. Mediastinum: Heart size is normal. No pericardial effusion. No large vessel abnormality. No mediastin al adenopathy by size criteria. Chest wall and lower neck: Thyroid is unremarkable. No axillary or supraclavicular adenopathy by size . Bones: No aggressive osseous abnormality. Upper Abdomen: Moderately severe diffuse hepatic steatosis. IMPRESSION: 1. No pulmonary emboli identified. 2. No acute pulmonary process. 3. No evidence of metastatic disease in the chest. 4. Moderately severe diffuse hepatic steatosis. Reviewed by: Kishan Montez MD on 11/04/2023 3:39 PM PST Approved by: Kishan Montez MD on 11/04/2023 3:39 PM PST Station ID: [id number]
[2023-11-04 16:09] VITALS: BP 127/87; O2SAT 99
== END 2023-11-04 16:00 | disposition home or self-care (01) ==
LOC: ED 10:17
DX: R00.2 Palpitations (principal); R07.81 Pleurodynia; Z85.3 Personal history of malignant neoplasm of breast
CPT/HCPCS: 36415; 71045; 71275; 80053; 83690; 84484; 85025; 93005; 99283; 99284; Q9967

== ENCOUNTER 2023-11-17 11:08 | Outpatient (CLI) | payer OTHER ==
--- NOTE | 2023-11-17 11:59 | Sleep Patient Instructions ---
Sleep Center Visit Summary - Patient Visit Information Reason for Visit: Sleep study follow-up - Patient Instructions Instructions Attached: CPAP, Apnea Sleep Mouthpieces Additional Instructions: You are going to take some time to think about options for treatment. Please let us know as soon as you can. Please call office to schedule a follow up appointment in the sleep care office. - Clinic Information Contact: [facility] [address] [place] [address] [email or web address] T: [phone]
[2023-11-17 12:07] VITALS: BP 146/97; O2SAT 98
--- NOTE | 2023-11-17 12:07 | SLEEP CARE CONSULTATION ---
Information from patient questionnaire entered by Chantell Gonzalez. I have reviewed and concur with the information entered by Chantell Gonzalez. This document represents the service I personally performed and the decisions made by , Rica Bruno ARNP. History of Present Illness Service Date and Time: 11/17/2023 1108 Accompanied by: Spouse (Sudheer) Initial [place] Sleepiness Scale score: 10 Current [place] Sleepiness Scale score: 9 Additional HPI information: YUMIKO MORRIS returns for follow up and results of the recently performed polysomnography. The sleep study showed mild obstructive sleep apnea with an average AHI of 14.4 and diamond oxygen saturation of 81%. I explained the pathophysiology behind obstructive sleep apnea. We then spent quite a bit of time discussing different treatment options. For mild o bstructive sleep apnea, surgery and oral appliance are alternatives to nasal CPAP therapy but in moderate or severe cases, nasal CPAP is the most effective and reliable treatment. I reviewed the impact of weight changes on sleep apnea and strongly recommended losing weight. I explained how CPAP machine works and what to expect when using the machine. AAS patient education Non Pap treatment pamphlets reviewed and given to patient. Patient was cautioned about risks of drowsy driving until sleepiness symptoms resolve. Sleep Study - Results Type of Sleep Study: Polysomnography (COMPLETED 11/02/23) Prior sleep studies: No Polysomnography/Home Sleep Study results: IMPRESSION: The quality of the study is good. 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 The sleep architecture was abnormal for sleep fragmentation and reduced amount of time spent in slow wave sleep (N3). Respiratory monitoring showed mild obstructive sleep apnea- hypopnea (AHI = 14.4) associated with frequent arousals, oxyhemoglobin desaturation and mild hypoxia (diamond oxygen saturation of 81%). The respiratory events occurred mainly during REM sleep (supine AHI = 19.3; non- supine = 9.75). Snore was intermittent and moderate in intensity. There was no significant periodic leg movement of sleep. Cardiac rhythm was normal sinus rhythm without significant arrhythmia. No abnormal behavior (parasomnia) observed during the night. Allergies and Home Medications Known drug allergies: No Drug allergies reviewed: Yes Home medication list reviewed: Yes (stopped Tamoxifen) Allergy and home medication list: Allergies No Known Drug Allergies Allergy (Verified 11/15/23 12:17) Home Medications Medication Instructions Recorded Confirmed Last Taken Type [place]-3 Fatty Acids [[place]-3] See Rx Instructions .ROUTE .COMPLEX 10/05/23 11/17/23 Unknown History Review of Systems Review of systems same as previous: Yes (heart monitor on) Physical Exam Vital signs obtained and entered by: PAM GALLAGHER Blood Pressure: 146/97 Cuff size: wrist (right) Heart Rate: 89 O2 Saturation: 98 Height: 5 ft 4 in Weight: 185 lb 6.4 oz Body Mass Index: 31.8 BMI Classification: Obese Impression and Plan 1. Obstructive Sleep Apnea-Hypopnea Syndrome, mild, with lowest oxygen saturation of 81%. Obviously this is the cause of the patients symptoms of unrefreshed sleep, and excessive daytime sleepiness. Positive pressure therapy could benefit arrhythmia and fibromyalgia. Yumiko would like to take some time to review her choices for treatment, including oral appliance, CPAP and surgical options before she decides upon treatment. I gave her information on non-pap options and she will be given list of dentist and CPAP DME suppliers to review at home. Because the apnea is more severe supine, I instructed to avoid sleeping supine using pillow positioning to control apneas as much as possible until treatment is started. She voiced understanding. 2. Hypoxemia, mild, with a diamond oxygen saturation of 81% and 3.1 minutes spent under 90%. The baseline oxygen saturation was normal with an average oxygen saturation of 94%. 2. Obesity, unspecified. Currently patients BMI is 31.8. Obesity increases the risk of apnea, CPAP pressure requirements and overall health risks especially cardiovascular and diabetes. Thus patient is advised to lose weight. * Patient to call with choice of therapy * Attempt to lose weight. * Avoid alcohol consumption near bedtime. * Avoid supine sleep * The patient is again cautioned about driving until sleepiness completely resolves. * Return determined by choice of therapy. Counseling Topics: Sleeping position, Weight loss health impact Visit Type: In Office Time Spent with Patient (minutes): 21 Provider Statement: I spent 100% of the Face to Face Visit with the patient with greater than 50% spent counseling the patient and coordination of care.
== END 2023-11-17 11:09 | disposition home or self-care (01) ==
LOC: SC 11:08
PROVIDERS: ATTEND Nurse Practitioner Family
DX: G47.33 Obstructive sleep apnea (adult) (pediatric) (principal); R09.02 Hypoxemia; E66.9 Obesity, unspecified; Z68.31 Body mass index [BMI] 31.0-31.9, adult
CPT/HCPCS: 99212; 99213

== ENCOUNTER 2023-12-26 16:10 | Outpatient (CLI) | payer OTHER ==
[2023-12-26] MEDS ORDERED: iohexoL-300 100 ML VIAL ONE (16:26)
[2023-12-26] MEDS: iohexoL-300 100 ML VIAL IVP ONE (17:29)
--- NOTE | 2023-12-26 18:45 | CT Report ---
PROCEDURE: CT Angio Head INDICATIONS: HEADACHE CONTRAST: 80mL Omni 300 TECHNIQUE: After the administration of intravenous contrast, 1 mm thick sections acquired through the [place] of [place]. Postcontrast 4.5 mm thick sections then re-acquired from the foramen magnum to the vertex. 3-dimensional oibgqad-uijyrbxhs-ywpkhzjoyl (MIP) and/or volume rendering reformats were acquired of t central intracranial vasculature. For radiation dose reduction, the following was used: automate d exposure control, adjustment of mA and/or kV according to patient size. COMPARISON: None. FINDINGS: Image quality: Diagnostic. Anterior circulation: Intracranial internal carotid arteries are normal in size and flow. The flow within the paired anterior cerebral arteries is normal and symmetric. The flow within the middle cer ebral arteries is normal and symmetric. The anterior communicating artery is seen. No aneurysms are seen. Posterior circulation: Visualized portions of the vertebral arteries demonstrate normal caliber, and join to form a normal appearing basilar artery. Flow within the posterior cerebral arteries is norm al and symmetric. No aneurysms are seen. CSF spaces: Ventricles are normal in size and shape. Basal cisterns are patent. No extra-axial flu id collections. Brain: No midline shift. No intracranial bleeds or masses. Smith-white matter interface appears int act. Skull and face: Calvarium and facial bones appear intact, without suspicious lesions. Sinuses: Visualized sinuses and mastoids are clear. IMPRESSION: No significant intracranial arterial abnormality is seen. If it would be helpful for clinical management decision making, please consider a dedicated brain MRI (without and with contrast) for further evaluation (assuming that there is no contraindication). Reviewed by: Dameon Coats MD on 12/26/2023 5:43 PM [facility] Approved by: Dameon Coats MD on 12/26/2023 5:43 PM [facility] Station ID: [id number]
== END 2023-12-26 16:11 | disposition home or self-care (01) ==
LOC: DI 16:10
PROVIDERS: ATTEND Physician Assistant Medical
DX: R51.9 Headache, unspecified (principal)
CPT/HCPCS: 70496; Q9967

== ENCOUNTER 2024-01-16 15:39 | Outpatient (CLI) | payer OTHER | END 2024-01-16 23:59 | disposition EMS.NT | LOC: EMS 15:39 | DX: R55 Syncope and collapse (principal) ==